=== PATIENT | male | born 2000 | race Hispanic/Latino ===

== ENCOUNTER 2021-03-26 18:24 | Emergency (ER) | payer OTHER ==
[2021-03-26] MEDS ORDERED: LIDOCAINE 1% W/EPI 1:100,000 MDV 20 ML VIAL ONE (20:14)
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
[2021-03-26] MEDS ORDERED: DIAZEPAM 5 MG TABLET ONE (21:13)
[2021-03-26 21:38] VITALS: TEMP 98.2
[2021-03-26 21:45] VITALS: BP 131/69; O2SAT 99
== END 2021-03-26 21:17 | disposition home or self-care (01) ==
LOC: ER 18:24
PROC: 0JQ10ZZ Repair Face Subcutaneous Tissue and Fascia, Open Approach (ICD-10-PCS; principal; 2021-03-26)
DX: S01.112A Laceration without foreign body of left eyelid and periocular area, initial encounter (principal); S02.2XXA Fracture of nasal bones, initial encounter for closed fracture; W19.XXXA Unspecified fall, initial encounter
CPT/HCPCS: 70450; 70486; 72125; 76377

== ENCOUNTER 2021-05-07 22:09 | Emergency (ER) | payer OTHER ==
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
[2021-05-08] MEDS ORDERED: ONDANSETRON 4 MG/2 ML VIAL ONE (01:17)
[2021-05-08] MEDS ORDERED: MORPHINE 4 MG/ML SYR ONE (01:17)
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
[2021-05-08 17:51] VITALS: TEMP 99.2
[2021-05-08 17:53] VITALS: BP 141/90; O2SAT 100
== END 2021-05-08 01:06 | disposition short-term general hospital (02) ==
LOC: ER 22:09
PROC: 0JQ00ZZ Repair Scalp Subcutaneous Tissue and Fascia, Open Approach (ICD-10-PCS; principal; 2021-05-08)
DX: S01.01XA Laceration without foreign body of scalp, initial encounter (principal); S12.500A Unspecified displaced fracture of sixth cervical vertebra, initial encounter for closed fracture; S12.600A Unspecified displaced fracture of seventh cervical vertebra, initial encounter for closed fracture; V49.9XXA Car occupant (driver) (passenger) injured in unspecified traffic accident, initial encounter
CPT/HCPCS: 70450; 72125; 71260; 74177; 99284; 12001; Q9967; J2405

== ENCOUNTER 2021-05-12 00:38 | Emergency (ER) | payer OTHER ==
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
[2021-05-12 05:00] VITALS: TEMP 98.2; O2SAT 98
[2021-05-12 05:03] VITALS: BP 119/75
== END 2021-05-12 04:51 | disposition short-term general hospital (02) ==
LOC: ER 00:38
DX: S12.5 Fracture of sixth cervical vertebra (principal); S12.600 Unspecified displaced fracture of seventh cervical vertebra; V86.95XD Unspecified occupant of 3- or 4- wheeled all-terrain vehicle (ATV) injured in nontraffic accident, subsequent encounter

== ENCOUNTER 2022-04-04 07:27 | Emergency (ER) | payer OTHER ==
--- OUTSIDE RECORDS SUMMARY | 2022-04-04 07:30 | XMS REPORT | Continuity of Care Document ---
:2000 Author Organization [facility] t Address [address] [place] [address] Care Team Providers Name Role Phone KATI Attending Clinician Unavailable LYNDA Attending Clinician Unavailable Damaris CEVALLOS Admitting Clinician Unavailable Payers Payer Name Policy Type Policy Number Effective Date Expiration Date S sylvester [place] [id number] 2016 2024 00:00:00 [employer] 00:00:00 [employer] Problems This patient has no known problems. Allergies, Adverse Reactions, Alerts This patient has no known allergies or adverse reactions. Medications This patient has no known medications. Procedures This patient has no known procedures. Encounters Start End Encounter Admission Attending Care Care Encounter Source Date/Time Date/Time Type Type Clinicians Facility Department ID 2021-05-20 Outpatient KATI [facility] [id number] [place] 16:27:15 SHADI [place] 2021-05-12 2021-05-12 Emergency E LYNDA, [facility] [address] [facility] 05:43:00 16:53:00 EVAN Results This patient has no known results.
--- NOTE | 2022-04-04 08:46 | EDPHYS ---
Physician Documentation [facility] Name: John Linder III Age: 21 yrs Sex: Male : 2000 Arrival Date: 04/04/2022 Time: 07:30 Bed 13 Private MD: ED Physician Yamileth Perez HPI: 04/04 08:45 This 21 yrs old Male presents to ER via Ambulatory with complaints of Knee ma2 Pain - left. 08:45 Patient sprained left knee while walking up the stairs, pain started the next day, has ma2 mild left lateral knee pain with movement, no trauma.. Historical: - Allergies: 07:46 No Known Allergies; jd3 - Home Meds: 07:46 None [Active]; jd3 - PMHx: 07:46 None; jd3 - PSHx: 07:46 hernia repair; jd3 - Immunization history:: Adult Immunizations up to date, Client reports receiving the 1st dose of the Covid vaccine. - Social history:: Smoking status: Patient denies any tobacco usage or history of. Patient/guardian denies using alcohol, street drugs, The patient lives with family. - Family history:: not pertinent. ROS: 08:45 Constitutional: Negative for fever, chills, and weight loss. ma2 08:45 All other systems are negative. Exam: 08:45 Constitutional: This is a well developed, well nourished patient who is awake, alert, ma2 and in no acute distress. Chest/axilla: Normal chest wall appearance and motion. Nontender with no deformity. No lesions are appreciated. Cardiovascular: Regular rate and rhythm with a normal S1 and S2. No gallops, murmurs, or rubs. Normal PMI, no JVD. No pulse deficits. Respiratory: Lungs have equal breath sounds bilaterally, clear to auscultation and percussion. No rales, rhonchi or wheezes noted. No increased work of breathing, no retractions or nasal flaring. Abdomen/GI: Soft, non-tender, with normal bowel sounds. No distension or tympany. No guarding or rebound. No evidence of tenderness throughout. Back: No spinal tenderness. No costovertebral tenderness. Full range of motion. Skin: Warm, dry with normal turgor. Normal color with no rashes, no lesions, and no evidence of cellulitis. MS/ Extremity: Pulses equal, no cyanosis. Neurovascular intact. Full, normal range of motion. Neuro: Awake and alert, GCS 15, oriented to person, place, time, and situation. Cranial nerves II-XII grossly intact. Motor strength 5/5 in all extremities. Sensory grossly intact. Cerebellar exam normal. Normal gait. Vital Signs: 07:41 BP 128 / 85; Pulse 73; Resp 16; Temp 97.9(O); Pulse Ox 98% on R/A; Weight 65.77 kg (R); mb7 Height 5 ft. 9 in. (175.26 cm) (R); 07:46 Pain 8/10; jd3 07:41 Body Mass Index 21.41 (65.77 kg, 175.26 cm) 7 MDM: 08:45 Differential diagnosis: contusion, abrasion, tendonitis. Data reviewed: vital signs, ma2 nurses notes. Counseling: I had a detailed discussion with the patient and/or guardian regarding: the historical points, exam findings, and any diagnostic results supporting the discharge/admit diagnosis, the presence of at least one elevated blood pressure reading (>120/80) during this emergency department visit, the need for outpatient follow up. Response to treatment: the patient's symptoms have markedly improved after treatment. 08:46 Patient medically screened. ma2 04/04 08:10 Order name: XRAY Knee LEFT 3 view; Complete Time: 09:53 ma2 Administered Medications: No medications were administered Disposition Summary: 04/04/22 08:46 Discharge Ordered Location: Home ma2 Condition: Stable ma2 Diagnosis - Sprain of other specified parts of left knee ma2 Followup: ma2 - With: Private Physician - When: Tomorrow - Reason: If symptoms return, Continuance of care Discharge Instructions: - Discharge Summary Sheet ma2 - Knee Sprain, Adult ma2 Forms: - Medication Reconciliation Form ma2 - Thank You Letter ma2 - Work release form jd3 - Antibiotic Education ma2 - Prescription Opioid Use ma2 Prescriptions: - Cyclobenzaprine 5 mg Oral Tablet - take 1 tablet by ORAL route 3 times per day As needed; 15 tablet; Refills: 0, ma2 Product Selection Permitted Signatures: Dispatcher [employer] Misha Contreras RN RN jd3 Alzahri, Mohammad, MD MD ma2
--- NOTE | 2022-04-04 08:46 | ER ---
Nurse's Notes [facility] Name: John Linder III Age: 21 yrs Sex: Male : 2000 Arrival Date: 04/04/2022 Time: 07:30 Bed 13 Private MD: Diagnosis: Sprain of other specified parts of left knee Presentation: 04/04 07:44 Chief complaint: Patient states: "I started having sudden left knee pain yesterday. I jd3 didn't hut it or anything that I know of. I just stepped out of the car and it immediately hurt to the point it was hard to pick things up at work yesterday. I tried to rest it last night, but it is still hurting pretty bad.". Coronavirus screen: At this time, the client does not indicate any symptoms associated with coronavirus-19. Ebola Screen: No symptoms or risks identified at this time. Initial Sepsis Screen: Does the patient meet any 2 criteria? No. Patient's initial sepsis screen is negative. Does the patient have a suspected source of infection? No. Patient's initial sepsis screen is negative. Risk Assessment: Do you want to hurt yourself or someone else? Patient reports no desire to harm self or others. Onset of symptoms was April 03, 2022. 07:44 Method Of Arrival: Ambulatory jd3 07:44 Acuity: LUCILLE 4 jd3 Historical: - Allergies: 07:46 No Known Allergies; jd3 - Home Meds: 07:46 None [Active]; jd3 - PMHx: 07:46 None; jd3 - PSHx: 07:46 hernia repair; jd3 - Immunization history:: Adult Immunizations up to date, Client reports receiving the 1st dose of the Covid vaccine. - Social history:: Smoking status: Patient denies any tobacco usage or history of. Patient/guardian denies using alcohol, street drugs, The patient lives with family. - Family history:: not pertinent. Screenin:49 Abuse screen: Denies threats or abuse. Nutritional screening: No deficits noted. jd3 Tuberculosis screening: No symptoms or risk factors identified. Fall Risk No IV (0 pts). Ambulatory Aid- None/Bed Rest/Nurse Assist (0 pts). Gait- Normal/Bed Rest/Wheelchair (0 pts) Mental Status- Oriented to own ability (0 pts). Total Vargas Fall Scale indicates No Risk (0-24 pts). Assessment: 07:47 General: Appears in no apparent distress. comfortable, Behavior is calm, cooperative, jd3 appropriate for age. Pain: Complains of pain in left knee Quality of pain is described as sharp, Aggravated by increased activity, weight bearing. Neuro: Srivastava Agitation-Sedation Scale (RASS): 0 - Alert and Calm Level of Consciousness is awake, alert, obeys commands, Oriented to person, place, time, situation, Gait is steady. Cardiovascular: Capillary refill < 3 seconds Patient's skin is warm and dry. Respiratory: Airway is patent Respiratory effort is even, unlabored, Respiratory pattern is regular, symmetrical. GI: No signs and/or symptoms were reported involving the gastrointestinal system. : No signs and/or symptoms were reported regarding the genitourinary system. EENT: No signs and/or symptoms were reported regarding the EENT system. Derm: Skin is intact, Skin is dry, Skin is normal, Skin temperature is warm. Musculoskeletal: Circulation, motion, and sensation intact. Range of motion: intact in all extremities. 08:59 Reassessment: Patient appears in no apparent distress at this time. Patient and/or jd3 family updated on plan of care and expected duration. Pain level reassessed. Patient is alert, oriented x 3, equal unlabored respirations, skin warm/dry/pink. discharge pending X-ray and results. Vital Signs: 07:41 BP 128 / 85; Pulse 73; Resp 16; Temp 97.9(O); Pulse Ox 98% on R/A; Weight 65.77 kg (R); mb7 Height 5 ft. 9 in. (175.26 cm) (R); 07:46 Pain 8/10; jd3 07:41 Body Mass Index 21.41 (65.77 kg, 175.26 cm) mb7 ED Course: 07:30 Patient arrived in ED. am2 07:38 Yamileth Perez MD is Attending Physician. ma2 07:41 Patient has correct armband on for positive identification. Bed in low position. Call mb7 light in reach. Side rails up X 1. Door closed. Noise minimized. 07:44 Misha Fritz RN is Primary Nurse. jd3 07:46 Triage completed. jd3 07:46 Arm band placed on. jd3 09:35 XRAY Knee LEFT 3 view In Process Unspecified. EDMS 10:07 No provider procedures requiring assistance completed. Patient did not have IV access jd3 during this emergency room visit. Administered Medications: No medications were administered Medication: 07:49 VIS not applicable for this client. jd3 Outcome: 08:46 Discharge ordered by . ma2 10:07 Discharged to home ambulatory. jd3 10:07 Condition: stable 10:07 Discharge instructions given to patient, Instructed on discharge instructions, follow up and referral plans. medication usage, Demonstrated understanding of instructions, follow-up care, medications, Prescriptions given X 1. 10:07 Patient left the ED. jd3 Signatures: Dispatcher [employer] EDMS Brooklynn Linder Jonathon, RN RN jYamileth Redd MD MD ma2 Breneman, Mary mb7
--- NOTE | 2022-04-04 09:43 | RAD REPORT ---
EXAM DESCRIPTION: RAD - Knee Left 3 View - 04/04/2022 9:33 am CLINICAL HISTORY: PAIN COMPARISON: No comparisons FINDINGS: No acute fracture. No malalignment. No significant focal degenerative changes. IMPRESSION: No acute osseous abnormality involving the left knee.
[2022-04-04 11:42] VITALS: BP 128/85; TEMP 97.9; O2SAT 98
== END 2022-04-04 10:07 | disposition home or self-care (01) ==
LOC: ER 07:27
DX: S83.8X2A Sprain of other specified parts of left knee, initial encounter (principal)
CPT/HCPCS: 99283

== ENCOUNTER 2022-06-12 12:27 | Emergency (ER) | payer OTHER ==
--- OUTSIDE RECORDS SUMMARY | 2022-06-12 12:30 | XMS REPORT | Continuity of Care Document ---
:2000 Author Organization [facility] t Address [address] [place] [address] Care Team Providers Name Role Phone SHADI PARIKH Attending Clinician Unavailable EVAN HOWELL Attending Clinician Unavailable CHAZ CEVALLOS Admitting Clinician Unavailable Payers Payer Name Policy Type Policy Number Effective Date Expiration Date [facility] [id number] 2016 2024 00:00:00 CHILDREN'S 00:00:00 [employer] Problems This patient has no known problems. Allergies, Adverse Reactions, Alerts This patient has no known allergies or adverse reactions. Medications This patient has no known medications. Procedures This patient has no known procedures. Encounters Start End Encounter Admission Attending Care Care Encounter Source Date/Time Date/Time Type Type Clinicians Facility Department ID 2021-05-20 Outpatient KATI [facility] [place] [id number] [place] 16:27:15 SHADI [facility] 2021-05-12 2021-05-12 Emergency E LYNDA, [facility] [address] [facility] 05:43:00 16:53:00 EVAN Results This patient has no known results.
--- NOTE | 2022-06-12 13:56 | RAD REPORT ---
EXAM DESCRIPTION: CT - C Spine Wo Con - 06/12/2022 1:42 pm CLINICAL HISTORY: neck pain, recent c6-c7 fracture Trauma, neck pain and injury COMPARISON: Head C Spine Mpr Wo Con dated 03/26/2021 FINDINGS: The cervical vertebral body heights and disc spaces are maintained. Ununited spinous process fractures of C6 and C7 noted. There is evidence of sclerosis along the fract ure line suggesting interval healing process. The C7 fracture appears more recent than the C6 fractur e. There is no canal compromise the canal involvement seen. Prevertebral soft tissues are normal in thickness. IMPRESSION: Evidence of subacute/ healing posterior spinous process fractures of C6 and 7. No new or acute fracture suspected. All CT scans are performed using dose optimization technique as appropriate and may include automated exposure control or mA/KV adjustment according to patient size.
--- NOTE | 2022-06-12 14:13 | EDPHYS ---
Physician Documentation [facility] Name: John Linder III Age: 21 yrs Sex: Male : 2000 Arrival Date: 06/12/2022 Time: 12:28 Bed 9 Private MD: ED Physician Jean Pierre Roth HPI: 06/12 14:09 This 21 yrs old Male presents to ER via Ambulatory with complaints of Neck kb Pain, >24Hrs Old. 14:09 The patient or guardian complains of pain, tenderness. The symptoms are located at the kb C6 and C7, on the right trapezius and lower cervical area and left trapezius. Onset: The symptoms/episode began/occurred yesterday. Context: The problem was sustained at home, The neck injury/problem resulted from from unknown cause. Associated signs and symptoms: Pertinent negatives: fever, numbness, tingling, The patient denies any alcohol use. The patient is not apparently intoxicated. No neurological symptoms were experienced by the patient prior to arrival in the emergency department. The pain does not radiate. Modifying factors: The symptoms are alleviated by nothing. the symptoms are aggravated by movement, pressure. Severity of symptoms: At their worst the symptoms were moderate, in the emergency department the symptoms are unchanged. The patient has not experienced similar symptoms in the past. The patient has not recently seen a physician. Pt reports neck pain that started yesterday. States he had a C6-C7 fracture in June 2021 and is concerned about that because the pain is in the same spot. Denies new injury or trauma. Historical: - Allergies: 13:29 No Known Allergies; bm7 - Home Meds: 13:29 None [Active]; bm7 - PMHx: 13:29 C6-C7 FRACTURE; bm7 - PSHx: 13:29 hernia repair; bm7 - Immunization history:: Adult Immunizations up to date. - Social history:: Smoking status: Patient denies any tobacco usage or history of. Patient uses street drugs, marijuana. ROS: 14:09 Constitutional: Negative for fever, chills, and weight loss. kb 14:09 Neck: Positive for pain with movement, tenderness, bony tenderness. 14:09 All other systems are negative. Exam: 14:09 Constitutional: This is a well developed, well nourished patient who is awake, alert, kb and in no acute distress. Head/Face: Normocephalic, atraumatic. ENT: Moist Mucous membranes Cardiovascular: Regular rate and rhythm with a normal S1 and S2. No gallops, murmurs, or rubs. No pulse deficits. Respiratory: Respirations even and unlabored. No increased work of breathing. Talking in full sentences Skin: Warm, dry with normal turgor. Normal color. MS/ Extremity: Pulses equal, no cyanosis. Neurovascular intact. Full, normal range of motion. Neuro: Awake and alert, GCS 15, oriented to person, place, time, and situation. Moves all extremities. Normal gait. Psych: Awake, alert, with orientation to person, place and time. Behavior, mood, and affect are within normal limits. 14:09 Neck: External neck: tenderness, that is moderate, of the left trapezius, lower cervical area and right trapezius, C-spine: vertebral tenderness, that is mild, appreciated at C6 and C7. Vital Signs: 13:28 BP 119 / 66; Pulse 82; Resp 18; Temp 98.7(TE); Pulse Ox 100% on R/A; Weight 65.32 kg bm7 (R); Height 5 ft. 9 in. (175.26 cm); Pain 9/10; 13:28 Body Mass Index 21.27 (65.32 kg, 175.26 cm) bm7 MDM: 13:24 Patient medically screened. kb 14:08 Data reviewed: vital signs, nurses notes. Data interpreted: Pulse oximetry: on room air kb is 100 %. Interpretation: normal. Counseling: I had a detailed discussion with the patient and/or guardian regarding: the historical points, exam findings, and any diagnostic results supporting the discharge/admit diagnosis, radiology results, the need for outpatient follow up, a family practitioner, to return to the emergency department if symptoms worsen or persist or if there are any questions or concerns that arise at home. 06/12 13:34 Order name: CT C Spine; Complete Time: 14:06 kb Administered Medications: 15:31 Drug: Ketorolac 30 mg Route: IM; Site: left deltoid; ss 15:37 Follow up: Response: No adverse reaction; Medication administered at discharge. ss 15:31 Drug: Flexeril (cyclobenzaprine) 10 mg Route: PO; ss 15:37 Follow up: Response: No adverse reaction; Medication administered at discharge. Disposition: 18:45 Co-signature as Attending Physician, Jean Pierre Roth MD. rn Disposition Summary: 06/12/22 14:12 Discharge Ordered Location: Home kb Condition: Stable kb Diagnosis - Cervicalgia kb Followup: kb - With: Emergency Department - When: As needed - Reason: Worsening of condition Followup: kb - With: Private Physician - When: 2 - 3 days - Reason: Recheck today's complaints, Continuance of care, Re-evaluation by your physician Discharge Instructions: - Discharge Summary Sheet kb - Musculoskeletal Pain kb Forms: - Medication Reconciliation Form kb - Thank You Letter kb - Antibiotic Education kb - Prescription Opioid Use kb Prescriptions: - Diclofenac Sodium 75 mg Oral tablet,delayed release (DR/EC) - take 1 tablet by ORAL route 2 times per day As needed; 30 tablet; Refills: 0, kb Product Selection Permitted Signatures: Dispatcher [employer] EDMS Yeny King, [employer] [employer]C[facility] Jean Pierre Roth MD MD rn Smirch, Shelby, RN RN Cintia Ram RN RN bm7 Corrections: (The following items were deleted from the chart) 13:30 13:29 PMHx: None; bm7 bm7
--- NOTE | 2022-06-12 14:13 | ER ---
Nurse's Notes [facility] Name: John Linder III Age: 21 yrs Sex: Male : 2000 Arrival Date: 06/12/2022 Time: 12:28 Bed 9 Private MD: Diagnosis: Cervicalgia Presentation: 06/12 13:28 Chief complaint: Patient states: I started having neck pain really bad since yesterday bm7 and I cant get comfortable. Coronavirus screen: At this time, the client does not indicate any symptoms associated with coronavirus-19. Ebola Screen: No symptoms or risks identified at this time. Initial Sepsis Screen: Does the patient meet any 2 criteria? No. Patient's initial sepsis screen is negative. Does the patient have a suspected source of infection? No. Patient's initial sepsis screen is negative. Risk Assessment: Do you want to hurt yourself or someone else? Patient reports no desire to harm self or others. 13:28 Method Of Arrival: Ambulatory [facility] 13:28 Onset of symptoms was June 12, 2022. [facility] 13:28 Acuity: LUCILLE 3 bm7 Triage Assessment: 13:29 General: Appears in no apparent distress. uncomfortable, Behavior is calm, cooperative, bm7 appropriate for age. Pain: Complains of pain in neck Pain does not radiate. EENT: No deficits noted. No signs and/or symptoms were reported regarding the EENT system. Neuro: Level of Consciousness is awake, alert, obeys commands, Oriented to person, place, time, situation, Threshing Operator are equal bilaterally Moves all extremities. Gait is steady, Speech is normal. Cardiovascular: No deficits noted. Respiratory: No deficits noted. GI: No deficits noted. No signs and/or symptoms were reported involving the gastrointestinal system. : No deficits noted. No signs and/or symptoms were reported regarding the genitourinary system. Derm: No deficits noted. No signs and/or symptoms reported regarding the dermatologic system. Musculoskeletal: Reports pain in neck. Historical: - Allergies: 13:29 No Known Allergies; bm7 - Home Meds: 13:29 None [Active]; bm7 - PMHx: 13:29 C6-C7 FRACTURE; bm7 - PSHx: 13:29 hernia repair; bm7 - Immunization history:: Adult Immunizations up to date. - Social history:: Smoking status: Patient denies any tobacco usage or history of. Patient uses street drugs, marijuana. Screenin:15 Abuse screen: Denies threats or abuse. Denies injuries from another. Nutritional ss screening: No deficits noted. Tuberculosis screening: Never had TB. Fall Risk None identified. Assessment: 15:15 General: Appears in no apparent distress. Behavior is calm, cooperative. Pain: ss Complains of pain in C7 and C6 and right trapezius and lower cervical area and left trapezius and neck Pain currently is 9 out of 10 on a pain scale. Is continuous. Neuro: Level of Consciousness is awake, alert, obeys commands, Oriented to person, place, time, situation. Cardiovascular: Capillary refill < 3 seconds is brisk in bilateral fingers. Respiratory: Airway is patent Respiratory effort is even, unlabored, Respiratory pattern is regular, symmetrical. GI: No signs and/or symptoms were reported involving the gastrointestinal system. Derm: Skin is intact, is healthy with good turgor, Skin is dry, Skin is pink, warm \T\ dry. normal. Musculoskeletal: Circulation, motion, and sensation intact. Range of motion: intact in all extremities, Swelling absent. Vital Signs: 13:28 BP 119 / 66; Pulse 82; Resp 18; Temp 98.7(TE); Pulse Ox 100% on R/A; Weight 65.32 kg bm7 (R); Height 5 ft. 9 in. (175.26 cm); Pain 9/10; 13:28 Body Mass Index 21.27 (65.32 kg, 175.26 cm) bm7 ED Course: 12:28 Patient arrived in ED. am2 13:06 Yeny King [facility]-C is [facility]. kb 13:06 Jean Pierre Roth MD is Attending Physician. kb 13:29 Triage completed. bm7 13:29 Arm band placed on right wrist. bm7 13:43 CT C Spine In Process Unspecified. EDMS 15:15 Patient has correct armband on for positive identification. ss 15:22 Diana Solis, RN is Primary Nurse. ss 15:37 No provider procedures requiring assistance completed. Patient did not have IV access ss during this emergency room visit. Administered Medications: 15:31 Drug: Ketorolac 30 mg Route: IM; Site: left deltoid; ss 15:37 Follow up: Response: No adverse reaction; Medication administered at discharge. ss 15:31 Drug: Flexeril (cyclobenzaprine) 10 mg Route: PO; ss 15:37 Follow up: Response: No adverse reaction; Medication administered at discharge. ss Medication: 15:15 VIS not applicable for this client. ss Outcome: 14:12 Discharge ordered by . kb 15:37 Discharged to home ambulatory. ss 15:37 Condition: good 15:37 Discharge instructions given to patient, friend, Instructed on discharge instructions, follow up and referral plans. medication usage, Demonstrated understanding of instructions, follow-up care, medications, Prescriptions given X 1. 15:37 Patient left the ED. ss Signatures: Dispatcher [employer] EDMS Yeny King, MARK TAMAYOP-Diana Fish RN RN Brooklynn Linder Brittany, RN RN bm7 Corrections: (The following items were deleted from the chart) 13:29 13:28 BP 119 / 66; Pulse 82bpm; Resp 68bpm; Pulse Ox 100% RA; Temp 98.7F Temporal; bm7 65.32 kg Reported; Height 5 ft. 9 in.; BMI: 21.2; Pain 9/10; bm7 13:30 13:29 PMHx: None; bm7 bm7
[2022-06-12] MEDS ORDERED: CYCLOBENZAPRINE 10 MG TAB ONE (15:33)
[2022-06-12] MEDS ORDERED: KETOROLAC 30 MG/ML INJ ONE (15:33)
[2022-06-12 16:17] VITALS: BP 119/66; TEMP 98.7; O2SAT 100
== END 2022-06-12 15:37 | disposition home or self-care (01) ==
LOC: ER 12:27
DX: M54.2 Cervicalgia (principal)
CPT/HCPCS: 72125; 96372; 99283

== ENCOUNTER 2024-01-27 17:53 | Emergency (ER) | payer OTHER ==
--- OUTSIDE RECORDS SUMMARY | 2024-01-27 17:57 | XMS REPORT | Continuity of Care Document ---
Author Name Unknown Address [address] [facility] thconnect Address [address] [facility] [place] [address] Care Team Providers Care Outreach Specialist Name Role Phone SHADI PARIKH Attending Clinician Unavailab EVAN Tran Attending Clinician Unavailable CHAZ CEVALLOS Admitting Clinician Unavailable Payers Payer Name Policy Type Policy Number Effective Date Expirati on Date Source [facility] STAR [id number] 2016 00:00:00 2024 00:00:00 Encounters Start Date/Time End Date/Time Encounter Type Admission Type Attending Clinicians Care Facility Care Department Encounter ID Source 2021-05-20 16:27:15 Outpatient SHADI PARIKH [facility] [id number] [facility] 2021-05-12 05:43:00 2021-05-12 16:53:00 Emergency E EVAN HOWELL [facility] [address] [facility]
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
[2024-01-28 10:00] VITALS: BP 131/85; TEMP 97.9; O2SAT 99
== END 2024-01-27 19:03 | disposition home or self-care (01) ==
LOC: ER 17:53
DX: S16.1XXA Strain of muscle, fascia and tendon at neck level, initial encounter (principal); V49.9XXA Car occupant (driver) (passenger) injured in unspecified traffic accident, initial encounter
CPT/HCPCS: 72125; 99284